=== PATIENT | male | born 1960 | race Caucasian/White ===

== ENCOUNTER 2016-12-23 10:03 | Day surgery (SDC) | payer OTHER ==
[~2016-12-23] VITALS: Ht 185.4 cm
--- NOTE | 2016-12-25 08:23 | OR ---
ADMIT: 12/23/2016 RM/LOC: [facility] MR#: [id number] [address] [address] [address] [place], [place] [address] [place] [address] Operative/Delivery Room Report SEX: M AGE: 56 : 1960 SURGERY DATE: 12/23/2016 SURGEON: Tegan Laboy MD NURSING ATTENDANT: None. PREOPERATIVE DIAGNOSES: 1. Lumbar disk degeneration. 2. Lumbosacral neuritis. POSTOPERATIVE DIAGNOSES: 1. Lumbar disk degeneration. 2. Lumbosacral neuritis. PROCEDURE PERFORMED: Right L4-L5 and L5-S1 transforaminal epidural injection. INDICATIONS FOR PROCEDURE: ANESTHESIA: Local without sedation. ESTIMATED BLOOD LOSS: Zero. COMPLICATIONS: None immediately evident. DESCRIPTION OF THE PROCEDURE: After the patient was seen in the preoperative area, vitals signs were taken. Prior to the procedure, the risks, benefits, and alternative therapies were discussed at length. Patient consent was obtained and updated. The patient was taken to the fluoroscopy suite and placed on the fluoroscopy table in the prone position. Pressure points were padded to comfort, monitors applied, and a timeout performed. The patient's lumbosacral area was then prepped and draped sterilely using ChloraPrep. C-arm fluoroscopy was then brought in to identify the transverse process of L4 and L5 on the right side. Lidocaine 1%, approximately 2 mL, was used to anesthetize the skin and underlying subcutaneous tissue. A 3.5-inch curved-tip 22-gauge spinal needle then was entered and advanced to make contact with the inferomedial portion of the transverse process of L5 and L5 on the right side. The needle was then worked off in a corkscrew method and ADMIT: 12/23/2016 RM/LOC: [facility] MR#: [id number] [address] [address]ORD[address] [place] [address] Operative/Delivery Room Report SEX: M AGE: 56 : 1960 placed into the uppermost portion of the neural foramina. A total of 2 mL of Isovue was instilled showing excellent epidural, as well as nerve root sheath, spread. The patient had reproduction of his typical pain. The patient then received 2 mL of 80 mg of Depo Medrol and 0.25% Marcaine plain distributed at each level. The patient tolerated the procedure well, had no complications, and was taken to the PACU. PLAN: The patient was examined after 20 minutes and had 80% reduction of pain. Discharge instructions were given, followup scheduled. The patient was discharged home with a medical van driver. Tegan Laboy MD/ tani JOB #: [id number] CC: Tegan Laboy, Attending Physician Laila Light, Family Physician
== END 2016-12-23 11:26 | disposition home or self-care (01) ==
LOC: SSS 10:03
DX: G89.29 Other chronic pain (principal); M51.17 Intervertebral disc disorders with radiculopathy, lumbosacral region; M99.83 Other biomechanical lesions of lumbar region; M47.816 Spondylosis without myelopathy or radiculopathy, lumbar region; F17.200 Nicotine dependence, unspecified, uncomplicated; Z98.890 Other specified postprocedural states